=== PATIENT | female | born 1980 | race Caucasian/White ===

== ENCOUNTER 2023-01-06 12:11 | Day surgery (SDC) | payer BC ==
[2022-12-31 10:02] VITALS: BMI 24.1
[2023-01-06] MEDS ORDERED: Ketorolac Tromethamine 30 MG/ML VIAL ONE ×2 (13:04→13:29)
[2023-01-06] MEDS ORDERED: Acetaminophen 500 MG TAB ONE (13:04)
[2023-01-06] MEDS ORDERED: Glycopyrrolate 0.2 MG/ML 5 ML SYRINGE ONE (13:07)
[2023-01-06] MEDS ORDERED: Ondansetron PF 4 MG/2 ML Vial ONE (13:07)
[2023-01-06] MEDS ORDERED: Lidocaine 1% PF 5 ML VIAL ONE (13:07)
[2023-01-06] MEDS ORDERED: Rocuronium Bromide 10 MG/ML (10ML VIAL) ONE (13:07)
[2023-01-06] MEDS ORDERED: NEOSTIGMINE 3 MG/3 ML SYR 3 MG/3 ML SYRINGE ONE (13:07)
[2023-01-06] MEDS ORDERED: PROPOFOL 200 MG/20 ML VIAL ONE (13:07)
[2023-01-06] MEDS ORDERED: Sodium Chloride 0.9% 100 ML ONE (13:41)
[2023-01-06] MEDS ORDERED: fentaNYL PF 100 MCG/2 ML SYRINGE ONE (13:41)
[2023-01-06] MEDS ORDERED: fentaNYL 50 mcg/mL 1 mL Vial ONE ×4 (13:41→15:46)
[2023-01-06] MEDS ORDERED: Midazolam HCl 2 mg/2 ml Vial ONE (13:41)
[2023-01-06] MEDS ORDERED: CEFAZOLIN 2 GM VIAL ONE (13:41)
[2023-01-06] MEDS ORDERED: EPINEPHrine 1 MG/ML AMP ONE (13:42)
[2023-01-06] MEDS ORDERED: Bupivacaine 0.25% HCL 30 ML VIAL ONE (13:42)
[2023-01-06] MEDS ORDERED: HYDROcodone/Acetaminophen 5/325 mg Tablet ONE (17:29)
== END 2023-01-06 17:31 | disposition home or self-care (01) ==
LOC: SDC 12:11
PROVIDERS: ATTEND Specialist
PROC: 0FT44ZZ Resection of Gallbladder, Percutaneous Endoscopic Approach (ICD-10-PCS; principal; 2023-01-06)
DX: K80.10 Calculus of gallbladder with chronic cholecystitis without obstruction (principal)
CPT/HCPCS: 88304; C1889; J0171; J1885; J2250; J2405; J2704; J3010; J3490; S0020